=== PATIENT | female | born 1990 | race American Indian/Alaskan Native ===

== ENCOUNTER 2016-06-17 14:43 | Emergency (ER) | payer MEDICAID ==
[2016-06-17 14:54] VITALS: BP 118/69; PULSE 72; RESP 18; O2SAT 100; BMI 21.6
[2016-06-17] MEDS ORDERED: Bacitracin Ointment 30 GM TUBE TOP STA (15:06)
[2016-06-17] MEDS ORDERED: Bacitracin 500 Units/gm Oint Foilpak UD ONE (15:08)
--- NOTE | 2016-06-17 15:08 | C.PDOC ---
History Of Present Illness 25 yr old female presents to the ER for evaluation of itchy rash to the left wrist for the past 4 days. Patient reports similar rash to children at home who were treated fungal cream and have improved. Patient denies direct trauma or injury, fever, drooling, sore throat, cough, chest pain, SOB, nausea, vomiting, weakness or numbness to left hand. Time Seen by Provider: 06/17/16 14:52 Chief Complaint (Nursing): Abnormal Skin Integrity History Per: Patient History/Exam Limitations: no limitations Onset/Duration Of Symptoms: Days (4) Current Symptoms Are (Timing): Still Present Location Of Injury: Left: Wrist Past Medical History Reviewed: Historical Data, Nursing Documentation, Vital Signs Vital Signs: Last Vital Signs Temp Pulse 72 06/17/16 14:51 Resp 18 06/17/16 14:51 BP 118/69 06/17/16 14:51 Pulse Ox 100 06/17/16 15:37 Family History: States: No Known Family Hx - Social History Hx Tobacco Use: No Hx Alcohol Use: No Hx Substance Use: No - Immunization History Hx Tetanus Toxoid Vaccination: Yes Hx Influenza Vaccination: No Hx Pneumococcal Vaccination: No Review Of Systems Except As Marked, All Systems Reviewed And Found Negative. Constitutional: Negative for: Fever Cardiovascular: Negative for: Chest Pain Respiratory: Negative for: Cough, Shortness of Breath Gastrointestinal: Negative for: Nausea, Vomiting Skin: Positive for: Rash (Itchy rash to the left wrist.) Neurological: Negative for: Weakness, Numbness Physical Exam - Physical Exam Appears: Well, Non-toxic, No Acute Distress Skin: Normal Color, Warm, Rash (erythematous, raised, scaly patch with sharply defined edges and scatterd small vesicules in middle, no discharge, no proxmal streaking, no flactulance.) Nose: Normal, No Discharge Oral Mucosa: Moist, No Drooling Tongue: Normal Appearing Lips: Normal Appearing Throat: Normal, No Erythema, No Exudate, No Drooling Neck: Normal Extremity: Normal ROM, No Tenderness, No Pedal Edema, No Deformity, No Swelling Neurological/Psych: Oriented x3, Normal Speech, Normal Motor, Normal Sensation, Normal Reflexes ED Course And Treatment O2 Sat by Pulse Oximetry: 100 Pulse Ox Interpretation: Normal Progress Note: On re-eavluation, pt is afebrile, hemodynamicaly stable. PulsEOx 100% RA. ENT: no acute finidngs. Skin: exam c/w tinea corporis. No cellulitis. Pt advised on course of ds. ref. to F/u with PMD, Derm in 2-3 days for re-eavl. return if any ne whcnages. Medical Decision Making Medical Decision Making: PLAN: * Bacitracin Ointment TOP Disposition Counseled Patient/Family Regarding: Diagnosis, Need For Followup, Rx Given - Disposition Referrals: Clinic,Med Surg [Primary Care Provider] - Disposition: HOME/ ROUTINE Disposition Time: 15:05 Condition: STABLE Additional Instructions: Use medication as prescribed Follow up with Dermatology in 2-3 days for re-evaluation. Return to ED if any worsening or new changes. Prescriptions: Doxycycline Hyclate 100 mg PO Q12 #14 tab Ketoconazole 2% Cr [Nizoral] 1 appl TP BID #1 tube Instructions: Tinea Corporis (ED) - Clinical Impression Clinical Impression: Tinea corporis - PA / ENGINEER BYPRODUCT / Resident Statement MD/DO has reviewed & agrees with the documentation as recorded. - Scribe Statement The provider has reviewed the documentation as recorded by the Scribe Mellissa Salas All medical record entries made by the Jimenezibroger were at my direction and personally dictated by me. I have reviewed the chart and agree that the record accurately reflects my personal performance of the history, physical exam, medical decision making, and the department course for this patient. I have also personally directed, reviewed, and agree with the discharge instructions and disposition.
== END 2016-06-17 15:15 | disposition home or self-care (01) ==
LOC: SUPCPDRO 14:43 → C.ER 14:43
DX: B35.4 Tinea corporis (principal)

== ENCOUNTER 2016-11-21 23:13 | Emergency (ER) | payer MEDICAID ==
[2016-11-21 23:14] VITALS: BMI 21.1
[2016-11-21 23:26] VITALS: BP 117/78; PULSE 68; RESP 18; TEMP 97.7; O2SAT 99
--- NOTE | 2016-11-21 23:33 | C.PDOC ---
History Of Present Illness 26 year old female who presents to the ER with a complaint of a rash to the left upper arm. Patient reports having a similar episode a few months ago and found out it was ringworm. Denies difficulty breathing or difficulty swallowing. Time Seen by Provider: 11/21/16 23:29 Chief Complaint (Nursing): Abnormal Skin Integrity History Per: Patient History/Exam Limitations: no limitations Onset/Duration Of Symptoms: Days Current Symptoms Are (Timing): Still Present Location Of Injury: Left: Arm Recent travel outside of the [place]: No Past Medical History Reviewed: Historical Data, Nursing Documentation, Vital Signs Vital Signs: Last Vital Signs Temp 97.7 F 11/21/16 23:23 Pulse 68 11/21/16 23:23 Resp 18 11/21/16 23:23 BP 117/78 11/21/16 23:23 Pulse Ox 99 11/22/16 00:25 - Medical History PMH: No Chronic Diseases Surgical History: No Surg Hx Family History: States: Unknown Family Hx - Social History Hx Tobacco Use: No Hx Alcohol Use: No Hx Substance Use: No - Immunization History Hx Tetanus Toxoid Vaccination: Yes Hx Influenza Vaccination: No Hx Pneumococcal Vaccination: No Review Of Systems Constitutional: Negative for: Fever, Chills ENT: Negative for: Mouth Swelling, Throat Swelling Musculoskeletal: Negative for: Arm Pain Skin: Positive for: Rash Physical Exam - Physical Exam Appears: Non-toxic, No Acute Distress Skin: Warm, Dry, Rash (Well define erythematous circular rash to anterior aspect of left upper arm with small vesicles at center. No pustule, warmth, or streaking.) Eye(s): bilateral: Normal Inspection Neurological/Psych: Oriented x3 ED Course And Treatment O2 Sat by Pulse Oximetry: 99 (Room air) Pulse Ox Interpretation: Normal Progress Note: Patient advised to follow up with dermatology or PMD. Disposition Counseled Patient/Family Regarding: Diagnosis - Disposition Referrals: [facility] [Outside] Disposition: HOME/ ROUTINE Disposition Time: 23:35 Condition: STABLE Additional Instructions: Please follwo up with PMD Apply cream as needed Return to ER if worse Prescriptions: Ketoconazole 2% Cr [Nizoral] 1 appl TP BID #1 tube Instructions: Tinea Corporis (ED) Forms: [employer] (South Sudanese) - Clinical Impression Clinical Impression: Tinea corporis - Scribe Statement The provider has reviewed the documentation as recorded by the Jimenezibroger Larios All medical record entries made by the Yumiko were at my direction and personally dictated by me. I have reviewed the chart and agree that the record accurately reflects my personal performance of the history, physical exam, medical decision making, and the department course for this patient. I have also personally directed, reviewed, and agree with the discharge instructions and disposition.
== END 2016-11-21 23:55 | disposition home or self-care (01) ==
LOC: C.ER 23:13
DX: B35.4 Tinea corporis (principal)

== ENCOUNTER 2017-01-19 08:14 | Emergency (ER) | payer MEDICAID ==
[2017-01-19 08:23] VITALS: BMI 22.4
[2017-01-19 08:24] VITALS: BP 108/75; PULSE 88; RESP 18; TEMP 98.1; O2SAT 99
--- NOTE | 2017-01-19 09:10 | C.PDOC ---
History Of Present Illness 26 y/o female presents to ED with complaints of buttock pain for 5 days developed after falling for 16 wooden stairs. Patient states she has been taking 600mg Ibuprofen but pain comes back which prompted visit to ed today. Patient denies change in sensation, bruising, numbness, weakness, incontinence or other injury or any other associated complaints at this time. - HPI Time Seen by Provider: 01/19/17 08:30 Chief Complaint (Nursing): Trauma History Per: Patient History/Exam Limitations: no limitations Onset/Duration Of Symptoms: Days Past Medical History Reviewed: Historical Data, Nursing Documentation, Vital Signs Vital Signs: Last Vital Signs Temp 98.1 F 01/19/17 08:23 Pulse 88 01/19/17 08:23 Resp 18 01/19/17 08:23 BP 108/75 01/19/17 08:23 Pulse Ox 99 01/19/17 09:19 - Medical History PMH: No Chronic Diseases Surgical History: No Surg Hx Family History: States: No Known Family Hx - Social History Hx Tobacco Use: No Hx Alcohol Use: No Hx Substance Use: No - Immunization History Hx Tetanus Toxoid Vaccination: Yes Hx Influenza Vaccination: No Hx Pneumococcal Vaccination: No Review Of Systems Eyes: Negative for: Vision Change Cardiovascular: Negative for: Chest Pain Respiratory: Negative for: Shortness of Breath Gastrointestinal: Negative for: Nausea, Vomiting Skin: Negative for: Rash Neurological: Negative for: Weakness, Numbness, Headache Physical Exam - Physical Exam Appears: Non-toxic, No Acute Distress Skin: Warm, Dry, No Rash Head: Atraumatic, Normacephalic Eye(s): bilateral: Normal Inspection Oral Mucosa: Moist Neck: Normal ROM, Supple Chest: Symmetrical Back: Normal Inspection, No CVA Tenderness, No Paraspinal Tenderness, Other ( Minimal tenderness to sacral and coccyx area. No swelling. No ecchymosis) Extremity: Normal ROM, Capillary Refill (<2 seconds) Neurological/Psych: Oriented x3, Normal Speech, Normal Motor, Normal Sensation Gait: Steady ED Course And Treatment O2 Sat by Pulse Oximetry: 99 (RA) Pulse Ox Interpretation: Normal Medical Decision Making Medical Decision Making: Xray ordered and viewed by me, showing no acute disk fracture or subluxation. Patient informed of radiology results. recommend NSAIDs and to sit on soft cushion to help with pain. Disposition Counseled Patient/Family Regarding: Diagnosis, Need For Followup - Disposition Referrals: Romaine Jones MD [Medical Doctor] - Disposition: HOME/ ROUTINE Disposition Time: 09:09 Condition: GOOD Additional Instructions: Your Xray was normal, no fracture You can take any pain reliever as needed Try to sit on soft cushion to help with pain Follow up with your doctor Prescriptions: Ibuprofen [Motrin] 600 mg PO Q8 #30 tab Instructions: Contusion in Adults (DC) Forms: [employer] (Ukrainian) - POA Present On Arrival: None - Clinical Impression Clinical Impression: Contusion of buttock - PA / [employer]LL[employer] OFFICER CHIEF / Resident Statement MD/DO has reviewed & agrees with the documentation as recorded. - Scribe Statement The provider has reviewed the documentation as recorded by the Yumiko Peoples All medical record entries made by the Jimenezibroger were at my direction and personally dictated by me. I have reviewed the chart and agree that the record accurately reflects my personal performance of the history, physical exam, medical decision making, and the department course for this patient. I have also personally directed, reviewed, and agree with the discharge instructions and disposition.
--- NOTE | 2017-01-19 10:19 | RAD ---
PROCEDURE: Radiographs of the Lumbar Spine. HISTORY: pain s.p fall COMPARISON: None available. FINDINGS: BONES: Alignment appears satisfactory. No listhesis. No acute displaced fracture identified. DISC SPACES: Unremarkable. OTHER FINDINGS: None. IMPRESSION: No acute displaced fracture or subluxation identified.
== END 2017-01-19 09:29 | disposition home or self-care (01) ==
LOC: C.ER 08:14
DX: S30.0XXA Contusion of lower back and pelvis, initial encounter (principal); W10.9XXA Fall (on) (from) unspecified stairs and steps, initial encounter

== ENCOUNTER 2017-04-13 19:07 | Emergency (ER) | payer MEDICAID ==
[2017-04-13 19:07] VITALS: BMI 22.4
[2017-04-13 19:58] VITALS: BP 107/71; PULSE 71; RESP 20; TEMP 98.8; O2SAT 95
--- NOTE | 2017-04-13 20:34 | C.PDOC ---
History Of Present Illness 26-year-old female, presents to the emergency department with complaints of fever, nausea, diffuse abdominal cramping, diarrhea, and vomiting for the past few hours. Patient denies any sick contacts at home with similar. Denies GI bleeding, Time Seen by Provider: 04/13/17 20:33 Chief Complaint (Nursing): Flu-like Symptoms History Per: Patient History/Exam Limitations: no limitations Onset/Duration Of Symptoms: Days Current Symptoms Are (Timing): Still Present Past Medical History Reviewed: Historical Data, Nursing Documentation, Vital Signs Vital Signs: Last Vital Signs Temp 98.8 F 04/13/17 19:51 Pulse 71 04/13/17 19:51 Resp 20 04/13/17 19:51 BP 107/71 04/13/17 19:51 Pulse Ox 95 04/13/17 21:53 Family History: States: No Known Family Hx - Social History Hx Tobacco Use: No Hx Alcohol Use: No Hx Substance Use: No - Immunization History Hx Tetanus Toxoid Vaccination: Yes Hx Influenza Vaccination: No Hx Pneumococcal Vaccination: No Review Of Systems Except As Marked, All Systems Reviewed And Found Negative. Constitutional: Positive for: Fever Cardiovascular: Negative for: Chest Pain Respiratory: Negative for: Shortness of Breath Gastrointestinal: Positive for: Nausea, Vomiting, Abdominal Pain Neurological: Negative for: Weakness, Numbness Physical Exam - Physical Exam Appears: Non-toxic, No Acute Distress Skin: Warm, Dry, No Rash Head: Atraumatic, Normacephalic Eye(s): bilateral: Normal Inspection, PERRL, EOMI Ear(s): Bilateral: Normal Nose: Normal Oral Mucosa: Moist Lips: Normal Appearing Throat: No Erythema, No Exudate Neck: Normal ROM, Supple Chest: Symmetrical Cardiovascular: Rhythm Regular, No Murmur Respiratory: Normal Breath Sounds, No Accessory Muscle Use Gastrointestinal/Abdominal: Soft, No Tenderness, No Guarding, No Rebound Back: Normal Inspection, No CVA Tenderness Extremity: Normal ROM, No Swelling Neurological/Psych: Oriented x3, Normal Speech, Normal Motor, Normal Sensation Gait: Steady ED Course And Treatment O2 Sat by Pulse Oximetry: 95 (on RA) Pulse Ox Interpretation: Normal Medical Decision Making Medical Decision Making: On re-exam, the patient is resting comfortably. Lungs are CTA, heart is RRR, abdomen is soft, non-tender and the patient is tolerating po well. Ambulatory in the ED with steady gait. Follow up with the medical doctor within 1-2 days. Return if worsened. Disposition - Disposition Referrals: Romaine Jones MD [Medical Doctor] - Disposition: HOME/ ROUTINE Disposition Time: 21:51 Condition: GOOD Additional Instructions: Follow up with the medical doctor within 1-2 days. Return if worsened. Prescriptions: Ibuprofen [Motrin] 600 mg PO TID #21 tab Ondansetron [Zofran Odt] 4 mg PO Q8 PRN #15 odt PRN Reason: Nausea/Vomiting Oseltamivir [Tamiflu] 75 mg PO BID #10 cap Instructions: Influenza (ED) Forms: [employer] (Tamazight) - Clinical Impression Clinical Impression: Influenza - Scribe Statement The provider has reviewed the documentation as recorded by the Scribe (Samia Fang) All medical record entries made by the Scribe were at my direction and personally dictated by me. I have reviewed the chart and agree that the record accurately reflects my personal performance of the history, physical exam, medical decision making, and the department course for this patient. I have also personally directed, reviewed, and agree with the discharge instructions and disposition.
== END 2017-04-13 22:20 | disposition home or self-care (01) ==
LOC: C.ER 19:07
DX: J11.1 Influenza due to unidentified influenza virus with other respiratory manifestations (principal)

== ENCOUNTER 2017-04-15 05:27 | Emergency (ER) | payer MEDICAID ==
[2017-04-15 05:27] VITALS: BMI 22.4
[2017-04-15] MEDS ORDERED: Sodium Chloride 0.9% 1,000 ML IV ONE (06:10)
--- NOTE | 2017-04-15 06:17 | C.PDOC ---
History Of Present Illness 26 year old female who presents to the emergency department with a complaint of general malaise, bodyaches, decreased appetite and 4 episodes of vomiting ongoing since yesterday. Patient was evaluated in ED on 04/13/17 for influenza and discharged with Zofran and Tamiflu but still does not feel any relief. PMD: none provided Time Seen by Provider: 04/15/17 05:27 Chief Complaint (Nursing): GI Problem History Per: Patient History/Exam Limitations: no limitations Onset/Duration Of Symptoms: Days (x2) Current Symptoms Are (Timing): Still Present Past Medical History Reviewed: Historical Data, Nursing Documentation, Vital Signs Vital Signs: Last Vital Signs Temp 100.4 F H 04/15/17 05:42 Pulse 97 H 04/15/17 05:42 Resp 18 04/15/17 05:42 BP 119/72 04/15/17 05:42 Pulse Ox 99 04/15/17 06:55 - Medical History PMH: No Chronic Diseases Denies: Chronic Kidney Disease Surgical History: Denies: No Surg Hx Family History: States: Unknown Family Hx - Social History Hx Tobacco Use: No Hx Alcohol Use: No Hx Substance Use: No - Immunization History Hx Tetanus Toxoid Vaccination: Yes Hx Influenza Vaccination: No Hx Pneumococcal Vaccination: No Review Of Systems Constitutional: Positive for: Fever, Malaise, Other (bodyache) ENT: Positive for: Nose Congestion, Throat Pain Respiratory: Positive for: Cough. Negative for: Shortness of Breath Gastrointestinal: Positive for: Vomiting (x4), Other (decreased PO intake). Negative for: Diarrhea Genitourinary: Negative for: Dysuria Neurological: Negative for: Weakness Physical Exam - Physical Exam Appears: Non-toxic, No Acute Distress, Other (tremulous) Skin: Normal Color Eye(s): bilateral: Normal Inspection, PERRL, EOMI Ear(s): Bilateral: Normal Nose: Normal Oral Mucosa: Moist Throat: Normal, No Erythema, No Exudate Neck: Normal, Supple Cardiovascular: Rhythm Regular Respiratory: Normal Breath Sounds, No Decreased Breath Sounds, No Wheezing Gastrointestinal/Abdominal: Normal Exam, Soft, No Tenderness Extremity: Normal ROM Neurological/Psych: Oriented x3 Gait: Steady ED Course And Treatment - Laboratory Results Result Diagrams: 04/15/17 06:35 O2 Sat by Pulse Oximetry: 99 (RA) Pulse Ox Interpretation: Normal Progress Note: Pt Medical Decision Making Medical Decision Making: Initial Impression: Influenza Initial Plan: * CMP * Lipase * CBC * NS 1,000ml IV per1,000mls/hr * Toradol 15mg IVP * Zofran inj 4mg IVP * Beta-HCG * UA Scribe Attestation: Documented by Sandra Zaidi, acting as a scribe for Paola Kirby Provider Scribe Attestation: All medical record entries made by the Scribe were at my direction and personally dictated by me. I have reviewed the chart and agree that the record accurately reflects my personal performance of the history, physical exam, medical decision making, and the department course for this patient. I have also personally directed, reviewed, and agree with the discharge instructions and disposition. Disposition - Disposition Disposition Time: 06:59 Condition: STABLE Forms: [employer] (Welsh) - Clinical Impression Clinical Impression: Vomiting, Influenza Physician Patient Turnover Patient Signed Over To: Carito Tafoya Handoff Comments: Pending labs and reevaluation for disposition
[2017-04-15] MEDS ORDERED: Sodium Chloride 0.9% 1,000 ML ONE (06:38)
[2017-04-15 06:44] LABS: BASO % 0.1 % (0.0-2.0); EOS % 0.1 % (0.0-4.0); HEMOGLOBIN 13.3 g/dL (11.0-16.0); LYMPH # 0.5 K/uL (1.0-4.3); LYMPH % 3.3 % (20.0-40.0); MEAN CELL VOLUME 84.6 fL (81.0-99.0); MEAN CORPUSCULAR HEMOGLOBIN 28.8 pg (27.0-31.0); MEAN CORPUSCULAR HGB CONC 34.1 g/dL (33.0-37.0); MEAN PLATELET VOLUME 8.3 fL (7.2-11.7); MONO % 6.5 % (0.0-10.0); NEUT # 13.6 K/uL (1.8-7.0); PLATELET COUNT 223 K/uL (130-400); RED CELL DISTRIBUTION WIDTH 13.1 % (11.5-14.5); WHITE BLOOD COUNT 15.1 K/uL (4.8-10.8)
[2017-04-15 06:51] LABS: BLOOD UREA NITROGEN 8 mg/dL (7-17); GFR AFRICAN-AMERICAN > 60; GFR NON-AFRICAN AMERICAN > 60
[2017-04-15 06:52] LABS: ALT/SGPT 27 U/L (9-52); AST/SGOT 18 U/L (14-36); LIPASE 34 U/L (23-300)
[2017-04-15 06:57] LABS: SQUAMOUS EPITHIAL 30 /hpf (0-5); URINE BACTERIA FEW (<OCC); URINE BILIRUBIN NEGATIVE (NEGATIVE); URINE BLOOD NEGATIVE (NEGATIVE); URINE CLARITY Hazy (Clear); URINE COLOR Yellow (YELLOW); URINE GLUCOSE (UA) NORMAL (Normal); URINE LEUKOCYTE ESTERASE TRACE Leu/uL (Negative); URINE NITRATE NEGATIVE (NEGATIVE); URINE PROTEIN 1+ mg/dL (NEGATIVE)
[2017-04-15 07:00] LABS: HCG,QUALITATIVE URINE NEGATIVE (NEGATIVE)
[2017-04-15 08:33] LABS: BANDS 2 % (0-2); LYMPHOCYTE 4 % (20-40); MONOCYTE 5 % (0-10); NEUTROPHIL 89 % (50-75); TOTAL CELLS COUNTED 100
[2017-04-15 08:34] LABS: ANISOCYTOSIS SLIGHT; GIANT PLATELETS PRESENT; LARGE PLATELETS PRESENT; PLATELET ESTIMATE NORMAL (NORMAL)
[2017-04-15 08:35] LABS: TOXIC GRANULATION PRESENT
[2017-04-15] MEDS ORDERED: MethylPREDNISolone 40 mg Vial ONE (09:37)
[2017-04-15 10:41] VITALS: BP 112/68; PULSE 84; RESP 20; TEMP 98.8; O2SAT 98
== END 2017-04-15 10:54 | disposition home or self-care (01) ==
LOC: C.ER 05:27
DX: J11.1 Influenza due to unidentified influenza virus with other respiratory manifestations (principal); R11.10 Vomiting, unspecified
CPT/HCPCS: 80053; 81001; 83690; 84703; 85025; 96361; 96365; 96375; 96376; 99284; J0696; J1885; J2405; J2930; J7040

== ENCOUNTER 2017-06-27 15:18 | Emergency (ER) | payer MEDICAID ==
[2017-06-27 15:18] VITALS: BMI 22.4
[2017-06-27 16:10] VITALS: BP 116/77; PULSE 81; RESP 20; TEMP 97.8; O2SAT 100
[2017-06-27 16:51] LABS: SQUAMOUS EPITHIAL 6 /hpf (0-5); URINE BACTERIA MOD (<OCC); URINE BILIRUBIN NEGATIVE (NEGATIVE); URINE BLOOD NEGATIVE (NEGATIVE); URINE CLARITY Hazy (Clear); URINE COLOR Yellow (YELLOW); URINE GLUCOSE (UA) NORMAL (Normal); URINE LEUKOCYTE ESTERASE TRACE Leu/uL (Negative); URINE PROTEIN 1+ mg/dL (NEGATIVE)
--- NOTE | 2017-06-27 16:51 | C.PDOC ---
History Of Present Illness 26 years old female with no PMHx presents to ED with complaints of dysuria associated with jordan with urination, small urine amount, and gross hematuria that began 6 days ago. Denies fever, chills, SOB, vomiting, flank or abdominal pain. Patient reports symptoms feel similar to previous UTI. Time Seen by Provider: 06/27/17 16:16 Chief Complaint (Nursing): Abdominal Pain History Per: Patient History/Exam Limitations: no limitations Onset/Duration Of Symptoms: Days (6) Current Symptoms Are (Timing): Still Present Radiation Of Pain To:: None Quality Of Discomfort: Burning Associated Symptoms: denies: Fever, Chills, Vomiting Exacerbating Factors: None Alleviating Factors: None Last Bowel Movement: Today Recent travel outside of the [place]: No Past Medical History Reviewed: Historical Data, Nursing Documentation, Vital Signs Vital Signs: Last Vital Signs Temp 97.8 F 06/27/17 16:07 Pulse 81 06/27/17 16:07 Resp 20 06/27/17 16:07 BP 116/77 06/27/17 16:07 Pulse Ox 100 06/27/17 16:55 - Medical History PMH: No Chronic Diseases Surgical History: No Surg Hx Family History: States: Unknown Family Hx - Social History Hx Tobacco Use: No Hx Alcohol Use: No Hx Substance Use: No - Immunization History Hx Tetanus Toxoid Vaccination: Yes Hx Influenza Vaccination: No Hx Pneumococcal Vaccination: No Review Of Systems Except As Marked, All Systems Reviewed And Found Negative. Respiratory: Negative for: Shortness of Breath Gastrointestinal: Negative for: Vomiting Physical Exam - Physical Exam Additional Physical Exam Comments: Constitutional: No acute distress. Head: Normocephalic. Atraumatic. Eyes: PERRL. ENT: Moist mucous membranes. Neck: Supple. Cardiovascular: Regular rate. Radial pulse 2+ bilaterally. Chest: No tenderness. Respiratory: Clear to auscultation bilaterally. GI: Soft. Nontender. Nondistended. Back: No CVA tenderness. Musculoskeletal: No tenderness or swelling of extremities. Skin: No rash. Neurologic: Alert, no focal deficit. ED Course And Treatment O2 Sat by Pulse Oximetry: 100 (RA) Pulse Ox Interpretation: Normal Medical Decision Making Medical Decision Making: Plan: Ordered Urinalysis and Urine culture. Disposition - Disposition Disposition: HOME/ ROUTINE Disposition Time: 17:04 Condition: STABLE Prescriptions: Cefdinir [Omnicef] 300 mg PO BID #14 cap Instructions: Acute Cystitis (DC) Forms: [email or web address] (Zambian) - Clinical Impression Clinical Impression: Urinary tract infection - Scribe Statement The provider has reviewed the documentation as recorded by the Jimenezibroger Bettencourt All medical record entries made by the Scribe were at my direction and personally dictated by me. I have reviewed the chart and agree that the record accurately reflects my personal performance of the history, physical exam, medical decision making, and the department course for this patient. I have also personally directed, reviewed, and agree with the discharge instructions and disposition.
[2017-06-27 16:52] LABS: HCG,QUALITATIVE URINE NEGATIVE (NEGATIVE)
== END 2017-06-27 17:35 | disposition home or self-care (01) ==
LOC: C.ER 15:18
DX: N39.0 Urinary tract infection, site not specified (principal)